=== PATIENT | female | born 1955 | race Hispanic/Latino ===

== ENCOUNTER 2022-04-05 09:49 | Emergency (ER) | payer OTHER, MEDICARE ==
[2022-04-05 09:56] VITALS: BP 138/75
[2022-04-05] MEDS ORDERED: HYDROMORPHONE 1 MG INJ IM ONE (11:30)
[2022-04-05] MEDS ORDERED: FAMOTIDINE 20MG TAB ONE (11:45)
[2022-04-05] MEDS ORDERED: FAMOTIDINE 20MG TAB PO ONE (12:00)
== END 2022-04-05 12:49 | disposition home or self-care (01) ==
LOC: EDH 09:49
DX: R10.9 Unspecified abdominal pain (principal); I10 Essential (primary) hypertension; Z88.5 Allergy status to narcotic agent; F41.9 Anxiety disorder, unspecified; W18.39XA Other fall on same level, initial encounter; Y93.89 Activity, other specified; Y92.89 Other specified places as the place of occurrence of the external cause; Y99.8 Other external cause status
CPT/HCPCS: 99284; 96372; J1170

== ENCOUNTER 2022-04-06 16:57 | Emergency (ER) | payer OTHER, MEDICARE ==
[~2022-04-06] VITALS: Ht 160 cm; Wt 131.5 kg
[2022-04-06] MEDS ORDERED: HYDROMORPHONE 1 MG INJ IVP ONE (17:30)
[2022-04-06 17:33] VITALS: BP 121/46
[2022-04-06 17:34] LABS: BASOPHILS % (AUTO) 0.1 % (0.0-5.0); HEMATOCRIT 34.3 % (36-48); LYMPHOCYTES % (AUTO) 10.9 % (21.0-51.0); MEAN CORPUSCULAR HEMOGLOBIN 31.8 pg (27.0-33.0); MEAN CORPUSCULAR HGB CONC 33.2 g/dL (32.0-36.0); MEAN CORPUSCULAR VOLUME 95.5 fL (79-99); MONOCYTES % (AUTO) 3.5 % (3.0-13.0); NEUTROPHILS % (AUTO) 83.1 % (40.0-77.0); PLATELET COUNT (AUTO) 170 K/uL (130-400); RED BLOOD CELL COUNT(AUTO) 3.59 MIL/uL (4.00-5.50); RED CELL DISTRIBUTION WIDTH 13.3 % (11.0-15.5); WHITE BLOOD COUNT (AUTO) 7.4 K/uL (4.8-10.8)
[2022-04-06 17:48] LABS: CREATININE 2.1 mg/dL (0.5-1.5); POTASSIUM 4.5 mmol/L (3.5-5.1)
[2022-04-06] MEDS ORDERED: FENTANYL 12 MCG/HR PATCH TD SCH (19:00)
[2022-04-06] MEDS ORDERED: DEXAMETHASONE 4 MG TAB PO SCH (19:00)
[2022-04-06] MEDS ORDERED: DiphenhydrAMINE HCL 50 MG/ML VIAL IV ONE (19:00)
[2022-04-06] MEDS ORDERED: DEXAMETHASONE 4 MG TAB ONE (19:19)
[2022-04-06] MEDS ORDERED: DiphenhydrAMINE HCL 50 MG/ML VIAL ONE (19:19)
[2022-04-06] MEDS ORDERED: HYDROCODONE/ACETAMINOPHEN 5/325 MG TAB PO ONE (22:00)
[2022-04-06] MEDS ORDERED: FENTANYL 25 MCG/HR PATCH TD SCH (22:00)
== END 2022-04-06 22:11 | disposition home or self-care (01) ==
LOC: EDH 16:57
DX: S30.1XXA Contusion of abdominal wall, initial encounter (principal); L50.9 Urticaria, unspecified; Z20.822 Contact with and (suspected) exposure to COVID-19; I10 Essential (primary) hypertension; Z88.5 Allergy status to narcotic agent; Z79.52 Long term (current) use of systemic steroids; W18.39XA Other fall on same level, initial encounter; Y93.89 Activity, other specified; Y92.89 Other specified places as the place of occurrence of the external cause; Y99.2 Volunteer activity
CPT/HCPCS: 99285; 71250; 96374; 87635; 96375; 84484; 80053; 83690; 85025; 36415; 74176; 93005; C9803; J1200; J1170; J8540